=== PATIENT | male | born 1955 | race Caucasian/White ===

== ENCOUNTER 2021-10-08 12:41 | Inpatient (IN) | payer OTHER ==
[~2021-10-08 12:41] MED LIST: chlordiazePOXIDE HCL 25 MG CAPSULE PO SCH
[2021-10-08] MEDS ORDERED: ACETAMINOPHEN 325 MG TABLET (FP) PO PRN (13:22)
[2021-10-08] MEDS ORDERED: BISMUTH SUBSALICYLATE 524 MG/30 ML PO PRN (13:22)
[2021-10-08] MEDS ORDERED: chlordiazePOXIDE HCL 25 MG CAPSULE PO PRN (13:22)
[2021-10-08] MEDS ORDERED: MAG HYDROX/AL HYDROX/SIMETH 30 ML UNIT-DOSE CUP PO PRN (13:22)
[2021-10-08] MEDS ORDERED: NICOTINE 10 MG CARTRIDGE (INHALER) IH PRN (13:22)
[2021-10-08] MEDS ORDERED: MAGNESIUM HYDROX 2400MG/30ML ORAL SUSPENSION 30 ML CUP PO PRN (13:22)
[2021-10-08] MEDS ORDERED: MAGNESIUM CITRATE 300 ML BOTTLE PO PRN (13:22)
[2021-10-08] MEDS ORDERED: ONDANSETRON *ODT* 4 MG TABLET SL PRN (13:22)
[2021-10-08] MEDS ORDERED: MENTHOL/PHENOL 1 EACH UD MM PRN (13:22)
[2021-10-08 13:35] VITALS: BMI 26.7
[2021-10-08] MEDS: chlordiazePOXIDE HCL 25 MG CAPSULE PO SCH ×3 (14:33→22:32)
[2021-10-08] MEDS: hydrOXYzine PAMOATE 25 MG CAPSULE (FP) PO SCH ×4 (17:05→22:31)
[2021-10-08] MEDS: ACETAMINOPHEN 325 MG TABLET (FP) PO PRN (17:35)
[2021-10-08] MEDS: PRENATAL VITAMINS W/ FOLIC ACID TABLET (FP) PO SCH (17:36)
[2021-10-08] MEDS: chlordiazePOXIDE HCL 25 MG CAPSULE PO PRN (20:46)
[2021-10-08] MEDS: MELATONIN 5 MG TABLETS PO SCH (22:31)
[2021-10-08] MEDS: THIAMINE HCL 100 MG TABLET (FP) PO SCH (22:31)
[2021-10-09] MEDS: chlordiazePOXIDE HCL 25 MG CAPSULE PO SCH ×4 (04:48→22:08)
[2021-10-09] MEDS: IBUPROFEN 400 MG TABLET (FP) PO PRN ×2 (04:49→17:29)
[2021-10-09] MEDS: hydrOXYzine PAMOATE 25 MG CAPSULE (FP) PO SCH ×5 (06:01→22:08)
[2021-10-09] MEDS: PRENATAL VITAMINS W/ FOLIC ACID TABLET (FP) PO SCH (11:12)
[2021-10-09] MEDS: NICOTINE 14 MG/24 HOURS TOPICAL PATCH TD SCH (11:12)
[2021-10-09] MEDS: chlordiazePOXIDE HCL 25 MG CAPSULE PO PRN (12:57)
[2021-10-09] MEDS: ACETAMINOPHEN 325 MG TABLET (FP) PO PRN ×2 (13:02→22:09)
[2021-10-09 13:41] LABS: HEMATOCRIT 38.9 % (35.4-49); HEMOGLOBIN 12.9 GM/dL (11.7-16.9); MCH 34.5 pg (25.7-33.7); MCHC 33.3 g/dl (32.0-35.9); MEAN CELL VOLUME 103.6 fl (80-96); MEAN PLT VOLUME 7.7 fl (7.5-11.1); PLATELET COUNT 106 10^3/uL (134-434); RBC 3.75 M/mm3 (4.00-5.60); RDW 15.9 % (11.9-15.9); WHITE BLOOD COUNT 4.2 K/mm3 (4.0-10.0)
[2021-10-09 13:56] LABS: CALCIUM 8.4 mg/dL (8.5-10.1)
[2021-10-09 13:57] LABS: BLOOD UREA NITROGEN 11.2 mg/dL (7-18)
[2021-10-09 14:00] LABS: CREATININE 0.6 mg/dL (0.55-1.3)
[2021-10-09 14:01] LABS: BILIRUBIN,TOTAL 1.9 mg/dL (0.2-1)
[2021-10-09 14:02] LABS: TOT PROT 6.2 g/dl (6.4-8.2)
[2021-10-09] MEDS: METHOCARBAMOL 500 MG TABLET PO PRN (15:30)
[2021-10-09] MEDS: MELATONIN 5 MG TABLETS PO SCH (22:07)
[2021-10-09] MEDS: THIAMINE HCL 100 MG TABLET (FP) PO SCH (22:07)
[2021-10-10] MEDS: IBUPROFEN 400 MG TABLET (FP) PO PRN ×3 (04:50→17:34)
[2021-10-10] MEDS: chlordiazePOXIDE HCL 25 MG CAPSULE PO SCH ×4 (04:50→22:18)
[2021-10-10] MEDS: METHOCARBAMOL 500 MG TABLET PO PRN (04:50)
[2021-10-10] MEDS ORDERED: chlordiazePOXIDE HCL 25 MG CAPSULE PO SCH (05:00)
[2021-10-10] MEDS: hydrOXYzine PAMOATE 25 MG CAPSULE (FP) PO SCH ×5 (05:04→22:19)
[2021-10-10] MEDS: PRENATAL VITAMINS W/ FOLIC ACID TABLET (FP) PO SCH (10:13)
[2021-10-10] MEDS: NICOTINE 14 MG/24 HOURS TOPICAL PATCH TD SCH (10:13)
[2021-10-10] MEDS: chlordiazePOXIDE HCL 25 MG CAPSULE PO PRN (14:54)
[2021-10-10] MEDS: THIAMINE HCL 100 MG TABLET (FP) PO SCH (22:18)
[2021-10-10] MEDS: MELATONIN 5 MG TABLETS PO SCH (22:19)
[2021-10-11] MEDS ORDERED: chlordiazePOXIDE HCL 10 MG CAPSULE PO PRN ×2
[2021-10-11] MEDS ORDERED: chlordiazePOXIDE HCL 10 MG CAPSULE PO SCH (05:00)
[2021-10-11] MEDS: chlordiazePOXIDE HCL 10 MG CAPSULE PO SCH ×4 (06:00→22:34)
[2021-10-11] MEDS: hydrOXYzine PAMOATE 25 MG CAPSULE (FP) PO SCH ×5 (06:00→22:26)
[2021-10-11] MEDS: IBUPROFEN 400 MG TABLET (FP) PO PRN ×2 (06:03→17:38)
[2021-10-11] MEDS: METHOCARBAMOL 500 MG TABLET PO PRN ×2 (06:05→22:25)
[2021-10-11] MEDS: PRENATAL VITAMINS W/ FOLIC ACID TABLET (FP) PO SCH (10:41)
[2021-10-11] MEDS: NICOTINE 14 MG/24 HOURS TOPICAL PATCH TD SCH (10:41)
[2021-10-11] MEDS: POTASSIUM CHLORIDE TABS 20 MEQ TABLET.ER (FP) PO SCH (10:41)
[2021-10-11] MEDS: MELATONIN 5 MG TABLETS PO SCH (22:26)
[2021-10-11] MEDS: THIAMINE HCL 100 MG TABLET (FP) PO SCH (22:26)
[2021-10-12] MEDS ORDERED: chlordiazePOXIDE HCL 10 MG CAPSULE PO SCH (05:00)
[2021-10-12] MEDS: chlordiazePOXIDE HCL 10 MG CAPSULE PO SCH ×2 (05:55→17:52)
[2021-10-12] MEDS: hydrOXYzine PAMOATE 25 MG CAPSULE (FP) PO SCH ×5 (05:55→22:18)
[2021-10-12] MEDS: METHOCARBAMOL 500 MG TABLET PO PRN ×2 (05:56→17:51)
[2021-10-12] MEDS: ACETAMINOPHEN 325 MG TABLET (FP) PO PRN ×2 (05:56→17:53)
[2021-10-12] MEDS: POTASSIUM CHLORIDE TABS 20 MEQ TABLET.ER (FP) PO SCH (10:11)
[2021-10-12] MEDS: PRENATAL VITAMINS W/ FOLIC ACID TABLET (FP) PO SCH (10:11)
[2021-10-12] MEDS: NICOTINE 14 MG/24 HOURS TOPICAL PATCH TD SCH (10:12)
[2021-10-12] MEDS: THIAMINE HCL 100 MG TABLET (FP) PO SCH (22:18)
[2021-10-12] MEDS: MELATONIN 5 MG TABLETS PO SCH (22:18)
[2021-10-12] MEDS: IBUPROFEN 400 MG TABLET (FP) PO PRN (22:18)
[2021-10-13] MEDS ORDERED: chlordiazePOXIDE HCL 10 MG CAPSULE PO ONE ×2 (05:00)
[2021-10-13] MEDS: hydrOXYzine PAMOATE 25 MG CAPSULE (FP) PO SCH ×5 (06:11→22:28)
[2021-10-13] MEDS: ACETAMINOPHEN 325 MG TABLET (FP) PO PRN ×2 (06:12→17:30)
[2021-10-13] MEDS: METHOCARBAMOL 500 MG TABLET PO PRN ×2 (06:13→17:30)
[2021-10-13] MEDS: POTASSIUM CHLORIDE TABS 20 MEQ TABLET.ER (FP) PO SCH (10:09)
[2021-10-13] MEDS: PRENATAL VITAMINS W/ FOLIC ACID TABLET (FP) PO SCH (10:09)
[2021-10-13] MEDS: NICOTINE 14 MG/24 HOURS TOPICAL PATCH TD SCH (10:22)
[2021-10-13] MEDS: chlordiazePOXIDE HCL 25 MG CAPSULE PO PRN ×3 (12:31→22:27)
[2021-10-13] MEDS: MELATONIN 5 MG TABLETS PO SCH (22:27)
[2021-10-13] MEDS: IBUPROFEN 400 MG TABLET (FP) PO PRN (22:28)
[2021-10-13] MEDS: THIAMINE HCL 100 MG TABLET (FP) PO SCH (22:28)
[2021-10-14] MEDS: hydrOXYzine PAMOATE 25 MG CAPSULE (FP) PO SCH ×2 (05:41→09:52)
[2021-10-14] MEDS: chlordiazePOXIDE HCL 25 MG CAPSULE PO PRN ×4 (05:42→22:27)
[2021-10-14] MEDS: POTASSIUM CHLORIDE TABS 20 MEQ TABLET.ER (FP) PO SCH (09:52)
[2021-10-14] MEDS: PRENATAL VITAMINS W/ FOLIC ACID TABLET (FP) PO SCH (09:52)
[2021-10-14] MEDS: NICOTINE 14 MG/24 HOURS TOPICAL PATCH TD SCH (10:41)
[2021-10-14] MEDS: ACETAMINOPHEN 325 MG TABLET (FP) PO PRN (17:58)
[2021-10-14] MEDS: MELATONIN 5 MG TABLETS PO SCH (22:27)
[2021-10-14] MEDS: METHOCARBAMOL 500 MG TABLET PO PRN (22:27)
[2021-10-14] MEDS: THIAMINE HCL 100 MG TABLET (FP) PO SCH (22:27)
[2021-10-14] MEDS: IBUPROFEN 400 MG TABLET (FP) PO PRN (22:29)
[2021-10-15] MEDS: METHOCARBAMOL 500 MG TABLET PO PRN (06:05)
[2021-10-15 08:56] VITALS: BP 108/66; PULSE 82; TEMP 96.7
[2021-10-15] MEDS: PRENATAL VITAMINS W/ FOLIC ACID TABLET (FP) PO SCH (10:24)
[2021-10-15] MEDS: NICOTINE 14 MG/24 HOURS TOPICAL PATCH TD SCH (10:24)
[2021-10-15] MEDS: POTASSIUM CHLORIDE TABS 20 MEQ TABLET.ER (FP) PO SCH (10:24)
== END 2021-10-15 11:36 | disposition other institution (70) | DRG 897 ==
LOC: YASAS 12:41 → Y3N 14:14
PROVIDERS: ADMIT Allergy & Immunology; ATTEND Allergy & Immunology
PROC: HZ2ZZZZ Detoxification Services for Substance Abuse Treatment (ICD-10-PCS; principal; 2021-10-08)
DX: F10.230 Alcohol dependence with withdrawal, uncomplicated (principal); F11.20 Opioid dependence, uncomplicated; F13.20 Sedative, hypnotic or anxiolytic dependence, uncomplicated; F17.210 Nicotine dependence, cigarettes, uncomplicated; I10 Essential (primary) hypertension; M16.0 Bilateral primary osteoarthritis of hip; Z96.641 Presence of right artificial hip joint
CPT/HCPCS: 36415; 80053; 85027; 86780; 93005; 93010; C9803; U0003; U0005